=== PATIENT | male | born 1940 | race Two or more races ===

== ENCOUNTER 2017-06-15 16:08 | Emergency (ER) | payer OTHER, MEDICARE ==
--- NOTE | 2017-06-15 16:34 | EDPHY ---
H & P Time Seen by Provider: 06/15/17 16:28 HPI/ROS: CHIEF COMPLAINT: Right hand and shoulder pain HISTORY OF PRESENT ILLNESS: The patient is a 76-year-old man who states that he fell down his stairs yesterday and injured his right hand and right shoulder. He states that he fell down about 8 steps. He was walking down the stairs when he fell forward. He fell on an outstretched right hand. He denies neck or head injury. He does have some minor abrasions to his chin and right side of his face. He denies any lower extremity injuries, chest pain or abdominal pain. REVIEW OF SYSTEMS: Constitutional: denies: chills, fever, recent illness, recent injury EENTM: denies: blurred vision, double vision, nose congestion Respiratory: denies: cough, shortness of breath Cardiac: denies: chest pain, irregular heart rate, lightheadedness, palpitations Gastrointestinal/Abdominal: denies: abdominal pain, diarrhea, nausea, vomiting, blood streaked stools Genitourinary: denies: dysuria, frequency, hematuria, pain Musculoskeletal: See HPI Skin: Abrasions Neurological: denies: headache, numbness, paresthesia, tingling, dizziness, weakness Hematologic/Lymphatic: denies: blood clots, easy bleeding, easy bruising Immunologic/allergic: denies: HIV/AIDS, transplant EXAM: GENERAL: Obese, mild distress HEAD: Atraumatic, normocephalic. EYES: Pupils equal round and reactive to light, extraocular movements intact, sclera anicteric, conjunctiva are normal. ENT: TMs normal, nares patent, oropharynx clear without exudates. Moist mucous membranes. NECK: Normal range of motion, supple without lymphadenopathy or JVD. LUNGS: Breath sounds clear to auscultation bilaterally and equal. No wheezes rales or rhonchi. HEART: Regular rate and rhythm without murmurs, rubs or gallops. ABDOMEN: Soft, nontender, normoactive bowel sounds. No guarding, no rebound. No masses appreciated. BACK: No CVA tenderness, no spinal tenderness, step-offs or deformities EXTREMITIES: Pain and swelling to right hand, normal range of motion and pulses. Pain to right shoulder, appears to be a step-off but difficult to tell because of obesity NEUROLOGICAL: Cranial nerves II through XII grossly intact. Normal speech, normal gait. 5/5 strength, normal movement in all extremities, normal sensation PSYCH: Normal mood, normal affect. SKIN: Abrasions to face and right leg . Source: Patient Exam Limitations: No limitations - Medical/Surgical History Hx Asthma: No Hx Chronic Respiratory Disease: No Hx Diabetes: No Hx Cardiac Disease: No Hx Renal Disease: No Hx Cirrhosis: No Hx Alcoholism: No Other PMH: Obesity - Family History Significant Family History: No pertinent family hx - Social History Smoking Status: Never smoked Alcohol Use: Sober Drug Use: None Constitutional: Initial Vital Signs Temperature (C) 37.5 C 06/15/17 16:25 Heart Rate 101 H 06/15/17 16:25 Respiratory Rate 16 06/15/17 16:25 Blood Pressure 176/94 H 06/15/17 16:25 O2 Sat (%) 92 06/15/17 16:25 O2 Delivery Mode Room Air O2 (L/minute) 2 Allergies/Adverse Reactions: No Known Allergies Allergy (Verified 06/15/17 16:41) Home Medications: Medication Instructions Recorded Hydrocodone/APAP 5/325 [[place] 1 - 2 tab PO Q4H PRN #7 tab 06/15/17 5/325 (RX)] Ibuprofen 06/15/17 Lipitor 06/15/17 Lisinopril 06/15/17 Nifedipine 06/15/17 Omeprazole 06/15/17 Simvastatin [Zocor] 06/15/17 Tamsulosin HCl 06/15/17 Viagra 06/15/17 Medical Decision Making - Diagnostics Imaging Results: Imaging Impressions Shoulder X-Ray 06/15/17 00:00 Impression: 1. Good position of the right humeral head postreduction. Hand X-Ray 06/15/17 16:32 Impression: 1. No definite acute fracture. 2. Diffuse soft tissue swelling. 3. Additional imaging if symptoms persist, if clinically indicated. Shoulder X-Ray 06/15/17 16:32 Impression: Anterior right shoulder dislocation. Imaging: Discussed imaging studies w/ callisthenics instructor Radiologist Procedures: Procedure: Dislocation reduction. The shoulder was reduced in the usual fashion using the [employer]'s technique and scapular manipulation without complications. Post reduction the patient's neurovascular exam is normal. Post reduction x-ray demonstrates reduction of the joint to the anatomic position. The procedure was performed by myself. Procedure: Procedural sedation. Indication: Shoulder reduction. A pre-sedation evaluation was completed on the patient just prior to the procedure. Patient is an appropriate candidate for procedural sedation with ASA class 1E. The risks of the sedation were discussed including but not limited to dysrhythmia, need for airway intervention or general anesthesia, disability, ; and verbal consent obtained. A timeout was observed and patient's identity confirmed. The patient was sedated with ketamine and propofol. The patient was monitored with continuous pulse oximetry, capnography , and manager business continuity. There were no complications and no significant hypoxemia. I remained at the bedside for the sedation. The total time I spent in the procedural sedation was 20 minutes. ED Course/Re-evaluation: 4:50 p.m. the patient has a dislocated shoulder. His hand appears to be un- fractured. His shoulder is been out for more than 12 hours. I will give him some Versed prior to sedation for muscle relaxation. 7:00 p.m. the patient was successfully sedated in his shoulder reduced with ketamine and propofol. He is placed in a sling. Postreduction x-rays are appropriate. We will observe for alertness and discharged with his who is here. I will have him follow up with Orthopedics. 7:50 p.m. the patient is awake and alert. The he is walking to the bathroom. He is eager to go home. He understands discharge instructions. Differential Diagnosis: Partial list of the Differential diagnosis considered include but were not limited to; hand fracture, shoulder dislocation, AC separation, abrasions, humerus fracture and although unlikely based on the history and physical exam, I also considered head injury, neck injury, wrist injury. I discussed these differential diagnoses and the plan with the patient as well as the usual and expected course. The patient understands that the diagnosis is provisional and that in medicine we are not always correct and that further workup is often warranted. Usual and customary warnings were given. All of the patient's questions were answered. The patient was instructed to return to the emergency department should the symptoms at all worsen or return, otherwise to followup with the physician as we discussed. - Data Points Medications Given: Discontinued Medications Sodium Chloride (Ns) 1,000 mls @ 0 mls/hr IV EDNOW ONE; Wide Open PRN Reason: Protocol Stop: 08/21/17 16:51 Last Admin: 06/15/17 17:22 Dose: 1,000 mls Ketamine HCl (Ketamine) 80 mg IVP EDNOW ONE Stop: 06/15/17 18:52 Last Admin: 06/15/17 18:51 Dose: 80 mg Midazolam HCl (Versed) 2 mg IVP EDNOW ONE Stop: 06/15/17 16:50 Last Admin: 06/15/17 17:24 Dose: 2 mg Propofol (Diprivan) 50 mg IVP EDNOW ONE Stop: 06/15/17 18:53 Last Admin: 06/15/17 18:52 Dose: 50 mg Departure - Departure Disposition: Home, Routine, Self-Care Clinical Impression: Dislocation of shoulder, right, closed Qualifiers: Encounter type: initial encounter Qualified Code(s): S43.004A - Unspecified dislocation of right shoulder joint, initial encounter Contusion of hand, right Qualifiers: Encounter type: initial encounter Qualified Code(s): S60.221A - Contusion of right hand, initial encounter Condition: Fair Instructions: Hydrocodone/Acetaminophen (By mouth), Shoulder Dislocation (ED) Referrals: NONE *PRIMARY CARE P,. [Primary Care Provider] - As per Instructions Ismael Cervantes MD [Medical Doctor] - As per Instructions Prescriptions: Hydrocodone/APAP 5/325 [[place] 5/325 (RX)] 1 - 2 tab PO Q4H PRN #7 tab PRN Reason: Pain, Moderate
[2017-06-15 16:48] VITALS: TEMP 99.5
[2017-06-15] MEDS ORDERED: MIDAZOLAM 2 MG/2 ML VIAL IVP ONE (16:49)
[2017-06-15] MEDS ORDERED: NS 1,000 ML IV ONE (16:50)
[2017-06-15] MEDS ORDERED: PROPOFOL 200 MG/20 ML VIAL ONE (18:37)
[2017-06-15] MEDS ORDERED: KETAMINE 100 MG/10 ML SYR ONE (18:38)
[2017-06-15] MEDS ORDERED: KETAMINE 100 MG/10 ML SYR IVP ONE (18:51)
[2017-06-15] MEDS ORDERED: PROPOFOL 200 MG/20 ML VIAL IVP ONE (18:52)
[2017-06-15 20:43] VITALS: RESP 18
[2017-06-15 21:08] VITALS: BP 183/108; PULSE 89; O2SAT 100
== END 2017-06-15 20:15 | disposition home or self-care (01) ==
LOC: CED 16:08
PROC: 0RSJXZZ Reposition Right Shoulder Joint, External Approach (ICD-10-PCS; principal; 2017-06-15)
DX: S43.004A Unspecified dislocation of right shoulder joint, initial encounter (principal); S60.221A Contusion of right hand, initial encounter; E86.9 Volume depletion, unspecified; W10.8XXA Fall (on) (from) other stairs and steps, initial encounter; Y99.8 Other external cause status; Y93.01 Activity, walking, marching and hiking
CPT/HCPCS: 23650; 73030; 73130; 96360; 99152; 99285; A4565; J2250; J2704